=== PATIENT | female | born 1995 | race Two or more races ===

== ENCOUNTER 2020-03-19 10:56 | Emergency (ER) | payer OTHER ==
[~2020-03-19] VITALS: Ht 170.2 cm; Wt 104.0 kg
--- NOTE | 2020-03-19 11:10 | NUR ---
INITIAL CONTACT WITH PT. PT ARRIVED TO ED C/O SOB. PT STATES SHE HAD A POSITIVE COVID TEST TWO DAYS AGO. SINCE THIS TIME PT STATES "I HAVE HAD A HARDER TIME BREATHING AND I HAVE A FEVER." PT DENIES ANY N/V CURRENTLY BUT STATES "I DID HAVE SOME A FEW DAYS AGO WHEN THIS ALL STARTED". PT ALSO STATES SHE "CANNOT TASTE OR SMELL ANYTHING". PT PLACED ON CONTINUOUS PULSE OX AND SUPERVISOR AGRICULTURAL EDUCATION. PT DENIES ANY NEEDS AT THIS TIME. CALL LIGHT WITHIN REACH, DROPLET+ PRECAUTIONS IN PLACE. PT WAS ALSO COVID POSITIVE IN SEPTEMBER. PT STATES SHE HAS REMAINED IN ISOLATION SINCE THE POSITIVE TEST 2 DAYS AGO.
[2020-03-19] MEDS ORDERED: KETOROLAC 30 MG/1 ML IVPush ONE (11:30)
[2020-03-19] MEDS ORDERED: MORPHINE SULFATE 4 MG/ML, 1ML IVPush PRN (11:30)
[2020-03-19] MEDS ORDERED: SODIUM CHLORIDE 0.9% 1,000ML IVBOLUS ONE (11:30)
[2020-03-19] MEDS ORDERED: KETOROLAC 30 MG/1 ML ONE (11:34)
[2020-03-19] MEDS ORDERED: MORPHINE SULFATE 4 MG/ML, 1ML ONE (11:34)
[2020-03-19 12:00] VITALS: BP 134/90
--- NOTE | 2020-03-19 12:01 | NUR ---
PT UPRIGHT ON GURNEY, ON CELL PHONE. NAD. PT UP TO RESTROOM WITH STEADY GAIT. NO ADDITIONAL NEEDS AT THIS TIME. CALL LIGHT WITHIN REACH, DROPLET+ PRECAUTIONS IN PLACE.
[2020-03-19 12:21] LABS: BASOPHILS # (AUTO) 0.01 x10^3/uL (0-0.1); BASOPHILS % (AUTO) 0 % (0-1); EOSINOPHILS # (AUTO) 0.01 x10^3/uL (0-0.4); EOSINOPHILS % (AUTO) 0 % (1-7); LYMPHOCYTES # (AUTO) 0.95 x10^3/uL (1-3.4); LYMPHOCYTES % (AUTO) 26 % (22-44); MD NO; MEAN CORPUSCULAR HEMOGLOBIN 29.1 pg (27.0-34.8); MEAN CORPUSCULAR HGB CONC 33.2 g/dL (32.4-35.8); MEAN PLATELET VOLUME 8.2 fL (7.4-10.4); MONOCYTES # (AUTO) 0.33 x10^3/uL (0.2-0.8); MONOCYTES % (AUTO) 9 % (2-9); NEUTROPHILS % (AUTO) 64 % (42-75); PLATELET COUNT 237 x10^3/uL (130-400); RED CELL DISTRIBUTION WIDTH 14.2 % (9.6-15.2)
[2020-03-19 12:32] LABS: ALANINE AMINOTRANSFERASE 58 U/L (12-78); ALBUMIN 3.6 g/dL (3.4-5.0); ANION GAP 7 mmol/L (5-15); CALCIUM 8.7 mg/dL (8.5-10.1); CHLORIDE 110 mmol/L (98-107); CREATININE 0.63 mg/dL (0.55-1.02)
[2020-03-19 12:37] LABS: ALKALINE PHOSPHATASE 100 U/L (45-117); BILIRUBIN,TOTAL 0.5 mg/dL (0.2-1.0); TOTAL PROTEIN 7.9 g/dL (6.4-8.2); TROPONIN I < 0.015 ng/mL (0.000-0.045)
--- NOTE | 2020-03-19 13:30 | NUR ---
break RN note: pt given dc instructions and script, educated regarding rx for amox. pt a&o, resps even and unlabored, ambulatory out of ED with steady gait. PIV dc'd with tip intact. nadn at dc.
== END 2020-03-19 13:31 | disposition home or self-care (01) ==
LOC: ED 12:21
DX: U07.1 COVID-19 (principal); J18.9 Pneumonia, unspecified organism; R07.9 Chest pain, unspecified; R00.0 Tachycardia, unspecified
CPT/HCPCS: 36415; 71045; 80053; 83605; 83880; 84484; 85025; 85379; 93005; 96374; 99285; J1885; J7030

== ENCOUNTER 2020-04-29 16:42 | Outpatient (CLI) | payer OTHER ==
[2020-04-29 17:03] LABS: BASOPHILS % (AUTO) 1 % (0-1); EOSINOPHILS % (AUTO) 1 % (1-7); LYMPHOCYTES % (AUTO) 32 % (22-44); MEAN CORPUSCULAR HEMOGLOBIN 29.2 pg (27.0-34.8); MEAN CORPUSCULAR HGB CONC 33.4 g/dL (32.4-35.8); MEAN PLATELET VOLUME 7.8 fL (7.4-10.4); MONOCYTES % (AUTO) 7 % (2-9); NEUTROPHILS % (AUTO) 59 % (42-75); PLATELET COUNT 323 x10^3/uL (130-400); RED BLOOD COUNT 4.64 x10^6/uL (3.82-5.3); RED CELL DISTRIBUTION WIDTH 15.9 % (9.6-15.2)
[2020-04-29 17:04] LABS: MD NO
== END 2020-04-29 23:59 | disposition home or self-care (01) ==
LOC: LAB 16:42
PROVIDERS: ATTEND Family Medicine
DX: U07.1 COVID-19 (principal); E55.9 Vitamin D deficiency, unspecified; J45.909 Unspecified asthma, uncomplicated; Z83.3 Family history of diabetes mellitus
CPT/HCPCS: 36415; 82306; 83036; 85025

== ENCOUNTER → 2020-05-17 | Outpatient (CLI) | payer OTHER | END | disposition home or self-care (01) | LOC: CFH 12:51 | PROVIDERS: ATTEND Internal Medicine | DX: R05 Cough (principal); K76.0 Fatty (change of) liver, not elsewhere classified | CPT/HCPCS: 71250 ==